=== PATIENT | male | born 1950 | race Hispanic/Latino ===

== ENCOUNTER 2022-06-13 11:30 | Outpatient (CLI) | payer MEDICARE | END 2022-06-13 11:31 | disposition home or self-care (01) | LOC: BICRAD 11:30 | PROVIDERS: ATTEND Nurse Practitioner Family | DX: M25.551 Pain in right hip (principal) ==

== ENCOUNTER 2023-12-30 14:06 | Outpatient (CLI) | payer MEDICARE | END 2023-12-30 14:07 | disposition home or self-care (01) | LOC: ULT 14:06 | DX: K40.90 Unilateral inguinal hernia, without obstruction or gangrene, not specified as recurrent (principal); N43.3 Hydrocele, unspecified; N50.3 Cyst of epididymis | CPT/HCPCS: 76870; 93976 ==